=== PATIENT | female | born 1985 | race Caucasian/White ===

== ENCOUNTER 2021-04-15 10:38 | Outpatient (CLI) | payer OTHER, SELFPAY ==
--- NOTE | 2021-04-15 12:55 | NEURO_ITS ---
PATIENT NUMBER: [id number] IMPRESSION: # Complaiins of left foot pain. # Left peroneal terminal latency 3.4 with left posterior tibial terminal latency being 5.7 also lateral plantar nerve latency 5.8 . Findings suggestive of left tarsal tunnel syndrome. Nerve Conduction Studies Anti Sensory Summary Table Stim Site NR Peak (ms) P-T Amp (?V) Site1 Site2 Delta-P (ms) Dist (cm) Jose (m/s) Left Sup Fibular Anti Sensory (Ant Lat Mall) 14 cm 3.3 21.8 14 cm Ant Lat Mall 3.3 16.0 48 Left Sural Anti Sensory (Lat Mall) Calf 3.3 18.4 Calf Lat Mall 3.3 16.0 48 Motor Summary Table Stim Site NR Onset (ms) O-P Amp (mV) Site1 Site2 Delta-0 (ms) Dist (cm) Jose (m/s) Left Lateral Plantar Motor (ADM) Med Mall 5.5 0.0 Left Medial Plantar Motor (AHB) Med Mall 5.7 0.0 Left Peroneal Motor (Vastus Med) Ankle 3.4 2.5 Popit Ankle 7.7 40.0 52 Popit 11.1 1.5 Left Tibial Motor (Abd Woody Brev) Ankle 5.5 1.2 Knee Ankle 9.7 41.0 42 Knee 15.2 0.5 F Wave Studies NR F-Lat (ms) L-R F-Lat (ms) Left Peroneal (Mrkrs) (EDB) 49.56 Left Tibial (Mrkrs) (Abd Hallucis) 50.49 EMG Side Muscle Nerve Root Ins Act Fibs Amp Dur Recrt Comment Left AntTibialis Dp Br Fibular L4-5 Nml Nml Nml Nml Nml Left Gastroc Tibial S1-2 Nml Nml Nml Nml Nml Left Fibularis Long Sup Br Fibular L5-S1 Nml Nml Nml Nml Nml Left Flex Dig Long Tibial L5-S2 Nml Nml Nml Nml Nml Left Ext Dig Brev Dp Br Fibular L5, S1 Nml Nml Nml Nml Nml MTDD
== END 2021-04-15 10:39 | disposition home or self-care (01) ==
LOC: ANHNEURO 10:39
DX: G57.52 Tarsal tunnel syndrome, left lower limb (principal)
CPT/HCPCS: 95886; 95909